=== PATIENT | female | born 1990 | race Caucasian/White ===

== ENCOUNTER 2017-02-21 22:31 | Outpatient (CLI) | payer MEDICAID ==
[~2017-02-21] VITALS: Ht 160 cm; Wt 110.5 kg
[2017-02-21 22:40] VITALS: BP 110/68; PULSE 79
[2017-02-21 22:48] VITALS: BP 110/68; PULSE 79; TEMP 97.4
[2017-02-21] MEDS ORDERED: LEVOXYL0.1 MG PO (22:54)
[2017-02-21] MEDS ORDERED: EFFEXOR 3737.5 MG/TA PO (22:55)
[2017-02-21 23:35] VITALS: BP 109/71; PULSE 88
== END 2017-02-21 23:50 | disposition home or self-care (01) ==
LOC: LDRO 22:31
DX: O26.893 Other specified pregnancy related conditions, third trimester (principal); Z3A.34 34 weeks gestation of pregnancy

== ENCOUNTER 2017-03-21 21:17 | Inpatient (IN) | payer MEDICAID ==
[~2017-03-21] VITALS: Ht 160 cm; Wt 109.8 kg
[~2017-03-21 21:17] MED LIST: EFFEXOR 3737.5 MG/TA PO; LEVOXYL0.1 MG PO
[2017-03-21 21:46] VITALS: BP 133/72; PULSE 88; TEMP 97.9
[2017-03-21] MEDS ORDERED: CEPHALEXIN500 M1 PO (21:57)
[2017-03-21] MEDS ORDERED: PRENATAL MVI (22:01)
[2017-03-22] VITALS (16 sets, daily range): BP systolic 101–136; BP diastolic 57–94; PULSE 53–104; TEMP 97.2–98
[2017-03-22 01:43] LABS: BASO % 0.2 % (0.0-2.0); EOS % 0.2 % (0-4.0); GRAN # 9.6 (1.4-6.5); GRAN % 73.5 % (42.2-75.2); HEMATOCRIT 37.4 % (37.0-47.0); HEMOGLOBIN 12.7 g/dl (12.5-16.0); LYMPH # 2.7 (1.2-3.4); LYMPH % 20.7 % (20.0-51.0); MEAN CELL VOLUME 86 fl (80.0-100.0); MEAN CORPUSCULAR HEMOGLOBIN 29 pg (27.0-31.0); MEAN CORPUSCULAR HGB CONC 34 g/dl (33.0-37.0); MEAN PLATELET VOLUME 10.7 fl (7.4-10.4); MONO # 0.6 (0.1-0.6); MONO % 4.6 % (1.7-9.3); PLATELET COUNT 207 K/mm3 (130-400); RED BLOOD COUNT 4.36 M/mm3 (4.10-5.30); REDCELL DISTRIBUTION WIDTH-CV 14.3 % (11.5-14.5)
[2017-03-23 00:09] VITALS: BP 113/69; PULSE 80; TEMP 97.8
[2017-03-23 07:00] VITALS: BP 109/67; PULSE 69; TEMP 97.6
[2017-03-23] MEDS ORDERED: IBU600 MG PO (08:37)
== END 2017-03-23 13:05 | disposition home or self-care (01) | DRG 775 ==
LOC: LDRO 21:17 → LDR 03-22 00:30 → OB 03-22 00:30
PROVIDERS: Obstetrics & Gynecology
PROC: 10E0XZZ Delivery of Products of Conception, External Approach (ICD-10-PCS; principal; 2017-03-22)
DX: O69.81X0 Labor and delivery complicated by cord around neck, without compression, not applicable or unspecified (principal); Z3A.38 38 weeks gestation of pregnancy; Z37.0 Single live birth
CPT/HCPCS: J2400; J2590; J2795; J7120

== ENCOUNTER 2019-03-23 19:19 | Outpatient (CLI) | payer MEDICAID ==
[~2019-03-23] VITALS: Ht 160 cm; Wt 114.5 kg
[~2019-03-23 19:19] MED LIST changes: +CEPHALEXIN500 M1 PO; +IBU600 MG PO; +PRENATAL MVI
[2019-03-23 19:55] VITALS: BP 108/58; PULSE 93; TEMP 98.6
[2019-03-23 20:00] VITALS: BP 108/58; PULSE 93; TEMP 98.4
[2019-03-23 20:26] LABS: COLLECTION METHOD CLEAN CATCH
[2019-03-23 20:45] LABS: MUCOUS Present /lpf; PH 7 (5-8); URINE APPEARANCE Cloudy; URINE BACTERIA Rare /hpf; URINE BILIRUBIN Negative (NEGATIVE); URINE BLOOD Negative (NEGATIVE); URINE COLOR Yellow; URINE GLUCOSE Negative (NEGATIVE); URINE KETONE Negative (NEGATIVE); URINE LEUKOCYTE ESTERASE Trace (NEGATIVE); URINE NITRATE Negative (NEGATIVE); URINE PROTEIN(semi-quant) Negative (NEGATIVE); URINE RBC 0-2 /hpf; URINE UROBILINOGEN Negative (NEGATIVE)
== END 2019-03-23 21:25 | disposition home or self-care (01) ==
LOC: LDRO 19:19
PROVIDERS: Student in an Organized Health Care Education/Training Program
DX: O26.893 Other specified pregnancy related conditions, third trimester (principal); Z3A.32 32 weeks gestation of pregnancy

== ENCOUNTER 2019-04-26 17:49 | Outpatient (CLI) | payer MEDICAID ==
[~2019-04-26] VITALS: Ht 160 cm; Wt 117.3 kg
--- NOTE | 2019-04-26 18:00 | NUR ---
Pt arrives on unit ambulatory with spouse. States contractions all day with leaking of fluid the past month that, "smells." Denies vaginal bleeding and reports GFM. Pt changed into a clean gown. EFM and toco applied. VSS. Amniotest negative. SVE per this RN /-2. BOWL. No fluid noted on glove. Dr. Shipman on unit. VORB for monitor x1 hour and recheck SVE. Call with assessment. Admission assessment completed. Pt updated on POC. Bed locked in low position. Call light within reach. No questions or concerns at this time.
[2019-04-26 18:33] VITALS: BP 125/80; PULSE 93; TEMP 97.6
--- NOTE | 2019-04-26 19:10 | NUR ---
Pt repsoitioned to LL and ice water given. 1919: SVE 70/-2. Plan of care explained to pt and . 1926: called and updated on pts status. See physican notification. 2016: SVe /-2, Ballotable, bloody show noted on glove. Pericare provided and plan of care explained to pt. 2023: called and updated on pts status. See physican notification. Pt updated on providers orders. Pt states she is wanting to stay one more hour and ambulate in hallways. 2020: Pt off monitors to ambulate in hallway. Denies needing anything else at this time
[2019-04-26 19:30] VITALS: BP 117/68; PULSE 94
[2019-04-26 20:00] VITALS: BP 123/81; PULSE 95
[2019-04-26 20:30] VITALS: BP 128/91; PULSE 93; TEMP 97.9
--- NOTE | 2019-04-26 21:30 | NUR ---
SVE UNCHANGED. FETUS BALLOTABLE WITH BLOODY SHOW NOTED. OKAY WITH PT DISCHARGING HOME IF UNCHANGED CERVIX. PT COMFORTABLE WITH DISCHARGING HOME WELL. 2133: PT OFF MONITORS TO CHANGE. 2144: DISCHARGE INSTRUCTIONS GIVEN TO PT AND WHO VERBALIZE UNDERSTANDING. DENIES ANY QUESTIONS. PT AMBULATORY OFF UNIT AND HOME WITH SPOUSE.
[2019-04-26 21:34] VITALS: BP 131/76; PULSE 83
== END 2019-04-26 21:45 | disposition home or self-care (01) ==
LOC: LDRO 17:49 → LDR 18:00 → LDRO 21:45
DX: O62.9 Abnormality of forces of labor, unspecified (principal); Z3A.37 37 weeks gestation of pregnancy
CPT/HCPCS: OP

== ENCOUNTER 2019-05-01 02:24 | Inpatient (IN) | payer OTHER, MEDICAID ==
[2019-05-01] VITALS (9 sets, daily range): BP systolic 103–131; BP diastolic 61–69; PULSE 78–100; TEMP 97.6–98.1
[~2019-05-01] VITALS: Ht 258 cm; Wt 113.6 kg
--- NOTE | 2019-05-01 02:52 | NUR ---
0230 - Pt arrives to unit by wheelchair with complaint of strong contractions. States her water broke when she was getting out of care around 0220. G7L5, all vaginal deliveries, GBS -. Pt moved to labor bed. SVE complete and +2. Attempting to obtain FHR, difficult due to maternal habitus and positioning. RN continuously handholding EFM. 0235 - Pt encouraged to continue breathing through contractions. Meconium fluid noted. RN continues to handhold EFM, difficult to obtain continuous FHR tracing. Contractions, firm, every 2-3 minutes by palpation. 0242 - Dr. Galindo at bedside. Pt moved to [facility], educated on pushing techniques. Nursery nurse at bedside. RN continues to handhold EFM, difficult to obtain continuous tracing due to maternal body habitus and positioning. Contractions every 2-3 minutes by palpation. IV started in left hand by Benny Chua CRNA. 0252 - Spontaneous delivery of viable baby girl. Cord clamped x [address] Galindo and cut by FOB. Care of infant assumed to Nursery RNToshia. 0257 - Spontaneous delivery of placenta. Fundal massage initiated by the RN. Much free flow bleeding noted. Pt not tolerating fundal massage and grabbing nurses arms. Verbal orders from Dr. Galindo to give Methergine IM since unable to perform proper fundal massage, see MAY. Perineum intact per Dr. Galindo. 0300 - recovery started. Ice pack to perineum. Pt repositioned in bed for comfort. Consents reviewed and signed with patient.
[2019-05-01 04:09] LABS: BASO % 0.1 % (0.0-2.0); EOS # 0.1 (0.0-0.7); EOS % 0.5 % (0-4.0); GRAN # 13.7 (1.4-6.5); GRAN % 84.9 % (42.2-75.2); HEMOGLOBIN 11.8 g/dl (12.5-16.0); LYMPH # 1.4 (1.2-3.4); LYMPH % 8.6 % (20.0-51.0); MEAN CELL VOLUME 91 fl (80.0-100.0); MEAN CORPUSCULAR HEMOGLOBIN 31 pg (27.0-31.0); MEAN CORPUSCULAR HGB CONC 34 g/dl (33.0-37.0); MEAN PLATELET VOLUME 10.2 fl (7.4-10.4); MONO # 0.8 (0.1-0.6); PLATELET COUNT 148 K/mm3 (130-400); RED BLOOD COUNT 3.85 M/mm3 (4.10-5.30); REDCELL DISTRIBUTION WIDTH-CV 14.6 % (11.5-14.5)
[2019-05-01 04:10] LABS: HEMATOCRIT 35.2 % (37.0-47.0)
--- NOTE | 2019-05-01 05:20 | NUR ---
Pt able to ambulate to bathroom independently. Pt voided 300 mL. Pericare explained and provided. Clean gown on. Mesh panties and peripad on. Pt transferred to room 215 by wheelchair with belongings.
--- NOTE | 2019-05-01 12:04 | NUR ---
Initial visit; Parents thanked Hydropulper Operator for offering congratulations and God's blessings for the of their daughter. Hydropulper Operator thanked family for choosing [facility].
--- NOTE | 2019-05-01 12:05 | NUR ---
Initial visit; Patient thanked Lead Vulcanizing Operator for looking in on her and offering God's blessings.
--- NOTE | 2019-05-01 13:30 | NUR ---
MOM UPDATED ON COMMUNICATION WITH DR CHOE. MOM VERBALIZED UNDERSTANDING OF POC
--- NOTE | 2019-05-01 17:56 | NUR ---
9610 DISCHARGE INSTRUCTIONS REVIEWED WITH PATIENT. PATIENT VERBALIZED UNDERSTANING. ALL PERSONAL BELONGINGS GATHERED IN PATIENT ROOM. PATIENT STAYING IN ROOM UNTIL BABE IS TRANSFERED.
== END 2019-05-01 17:45 | disposition home or self-care (01) | DRG 807 ==
LOC: LDRO 02:24 → OB 02:35 → LDR 02:40 → OB 05:20
PROVIDERS: Student in an Organized Health Care Education/Training Program; ADMIT Obstetrics & Gynecology
PROC: 10E0XZZ Delivery of Products of Conception, External Approach (ICD-10-PCS; principal; 2019-05-01)
DX: O77.0 Labor and delivery complicated by meconium in amniotic fluid (principal); Z37.0 Single live birth; O99.214 Obesity complicating childbirth; O99.344 Other mental disorders complicating childbirth; E66.9 Obesity, unspecified; G89.29 Other chronic pain; O62.2 Other uterine inertia; F32.9 Major depressive disorder, single episode, unspecified; Z23 Encounter for immunization; Z3A.38 38 weeks gestation of pregnancy
CPT/HCPCS: J2210; J2590

== ENCOUNTER 2020-10-08 09:24 | Inpatient (IN) | payer OTHER, MEDICAID ==
[2020-10-08] VITALS (23 sets, daily range): BP systolic 104–136; BP diastolic 56–81; PULSE 66–117; TEMP 97.8–98.8
[~2020-10-08] VITALS: Ht 160 cm; Wt 116.4 kg
[~2020-10-08 09:24] MED LIST changes: +EMGALITY120 MG/1 M SQ; +FLEXERIL 1010 MG/TAB PO; +PEPCID 20MG TAB20 MG PO; +WELLBUTRIN XL150 MG PO
--- NOTE | 2020-10-08 09:45 | NUR ---
Pt and spouse arrive ambulatory to unit for scheduled induction of labor. Pt changes into gown, EFM explained and placed, VS taken. Pt denies leaking of fluid and vaginal bleeding, reports good movement. Pt anxious but excited for induction.
--- NOTE | 2020-10-08 10:20 | NUR ---
Consents discussed and signed. Dr. Dominique notified of pt arrival. Pt denies questions or needs at this time.
[2020-10-08 10:38] LABS: BASO % 0.2 % (0.0-2.0); EOS # 0.1 (0.0-0.7); EOS % 0.5 % (0-4.0); GRAN # 9.3 (1.4-6.5); GRAN % 76.9 % (42.2-75.2); HEMATOCRIT 37.8 % (37.0-47.0); HEMOGLOBIN 12.7 g/dl (12.5-16.0); LYMPH # 1.9 (1.2-3.4); LYMPH % 15.9 % (20.0-51.0); MEAN CELL VOLUME 89 fl (80.0-100.0); MEAN CORPUSCULAR HEMOGLOBIN 30 pg (27.0-31.0); MEAN CORPUSCULAR HGB CONC 34 g/dl (33.0-37.0); MEAN PLATELET VOLUME 10.3 fl (7.4-10.4); MONO # 0.7 (0.1-0.6); MONO % 5.6 % (1.7-9.3); PLATELET COUNT 183 K/mm3 (130-400); RED BLOOD COUNT 4.24 M/mm3 (4.10-5.30); REDCELL DISTRIBUTION WIDTH-CV 14.6 % (11.5-14.5)
--- NOTE | 2020-10-08 12:34 | NUR ---
Dr. Dominique to bedside. SVE /-3. AROM at this time, thick mec fluid noted.
--- NOTE | 2020-10-08 13:05 | NUR ---
pt requesting epidural at this time. JOSE Mayo notified.
--- NOTE | 2020-10-08 13:11 | NUR ---
JOSE Mayo to bedside. Pt repositioned sitting up at bedside for edpidural placement.. 1317 - Pt experiencing much discomfort with epidural placement, having difficulty remaining still. FHT difficult to trace at this time. Maternal HR monitor on but not tracing on FHR strip. Maternal HR audible, matching HR tracing on strip. 1333 - Difficulty with epidural placement continues. Pt position changed from sitting up to right lateral in position. Difficulty also continues tracing FHR. Tracings on strip continue to match maternal HR. 1336 - Epidural line placed. Single shot given at 1338. 1342 - While attempting to reposition patient after epidural, pt reports feeling like she needs to push. Pt begins involuntarily pushing at this time. Pt remains in right lateral position. Hope Colunga, RN, Hope Hinkle, RN, Madan Martinez, JULIETTE of nursery, and JULIETTE Moreno of nursery to pt bedside. Dr. Dominique called at 1344. 1350 - Dr. Dominique arrives at pt bedside. Pt repositioned and bed broken down for delivery. 1356 - Female delivered via attended by Dr. Dominique. Infant placed on mothers abdomen where dried and stimulated. Care of transferred to nursery RNs. 1411 - Placenta spontaneously delivered, red robbin used by Dr. Dominique to drain pt bladder Fundal massage provided. Pericare provided, ice pack placed. Pt repositioned for comfort. Pt denies further needs at this time.
[2020-10-09 01:00] VITALS: BP 118/72; PULSE 72; TEMP 98.4
[2020-10-09 07:15] VITALS: BP 103/61; PULSE 80; TEMP 97.8
[2020-10-09] MEDS ORDERED: IBU600 MG PO (08:27)
[2020-10-09] MEDS ORDERED: WELLBUTRIN XL150 MG PO (08:28)
--- NOTE | 2020-10-09 10:33 | NUR ---
Initial visit; Parents thanked Klystrom Tube Tester for offering congratulations and God's blessings for the of their daughter. Klystrom Tube Tester thanked family for choosing [facility].
[2020-10-09 11:30] VITALS: BP 106/66; PULSE 85; TEMP 98.2
[2020-10-09 20:00] VITALS: BP 105/62; PULSE 71; TEMP 98.8
[2020-10-10 07:36] VITALS: BP 131/71; PULSE 79; TEMP 98.1
--- NOTE | 2020-10-10 09:30 | NUR ---
0930-Reviewed discharge instructions with patient. Denies questions. Reviewed new prescriptions and appointment scheduled with Kaci in 6 weeks. 0950-Ambulatory off unit with spouse.
== END 2020-10-10 09:50 | disposition home or self-care (01) | DRG 807 ==
LOC: OB 09:24 → LDR 09:24 → OB 16:50
PROVIDERS: ADMIT Obstetrics & Gynecology
PROC: 10E0XZZ Delivery of Products of Conception, External Approach (ICD-10-PCS; principal; 2020-10-08)
PROC: 10907ZC Drainage of Amniotic Fluid, Therapeutic from Products of Conception, Via Natural or Artificial Opening (ICD-10-PCS; 2020-10-08)
DX: O99.214 Obesity complicating childbirth (principal); Z37.0 Single live birth; E66.9 Obesity, unspecified; O99.344 Other mental disorders complicating childbirth; F32.9 Major depressive disorder, single episode, unspecified; O99.284 Endocrine, nutritional and metabolic diseases complicating childbirth; O99.62 Diseases of the digestive system complicating childbirth; K21.9 Gastro-esophageal reflux disease without esophagitis; E03.9 Hypothyroidism, unspecified; G89.29 Other chronic pain; M54.9 Dorsalgia, unspecified; Z3A.39 39 weeks gestation of pregnancy
CPT/HCPCS: J2590; J7120